=== PATIENT | female | born 2000 | race Caucasian/White ===

== ENCOUNTER 2023-11-19 22:50 | Emergency (ER) | payer OTHER, SELFPAY ==
[2023-11-19 23:10] VITALS: BP 104/76
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
[2023-11-19 23:52] LABS: % Basophils 0.5 % (0-2); % Eosinophils 0.3 % (0-6); % Immature Granulocytes 3.1 % (0-0.5); % Lymphocytes 18.5 % (20.5-51.1); % Neutrophils 72.6 % (42.2-75.2); Absolute Basophils 0.1 10^3/uL (0-0.2); Absolute Immature Granulocytes 0.4 10^3/uL (0-0.05); Absolute Lymphocytes 2.2 10^3/uL (1.2-3.4); Absolute Monocytes 0.6 10^3/uL (0.1-0.6); Absolute Neutrophils 8.5 10^3/uL (1.4-6.5); Hematocrit 43.1 % (37.0-47.0); Hemoglobin 14.9 g/dL (12.0-16.0); Mean Corp Hgb Conc. 34.6 g/dL (33.0-37.0); Mean Corpuscular Volume 86.9 fL (81.0-99.0); Mean Platelet Volume 8.9 fL (7.4-10.4); Nucleated Red Blood Cells % 0 %; Platelet Count 349 10^3/uL (130-400); Red Blood Cell Count 4.96 10^6/uL (4.20-5.40); Red Cell Dist. Width 11.9 % (11.5-14.5); White Blood Cell Count 11.6 10^3/uL (4.8-10.8)
[2023-11-19] MEDS: TORADOL 15 MG IV (23:56)
[2023-11-20 00:04] LABS: HCG, Serum Qualitative Screen Negative
[2023-11-20 00:12] LABS: Blood Urea Nitrogen 5 mg/dl (7-17); Calcium 9.2 mg/dl (8.4-10.2); Carbon Dioxide 26 mmol/L (22-30); Glucose 110 mg/dl (70-99); eGFR > 60.00
[2023-11-20 00:30] LABS: Chloride 104 mmol/L (98-107); Potassium 4.1 mmol/L (3.5-5.1); Sodium 144 mmol/L (135-145)
== END 2023-11-20 01:52 | disposition home or self-care (01) ==
LOC: EMR 22:50
PROVIDERS: EMERGENCY PHYSICIAN Emergency Medicine
DX: S42.001A Fracture of unspecified part of right clavicle, initial encounter for closed fracture (principal); S22.41XA Multiple fractures of ribs, right side, initial encounter for closed fracture; V47.5XXA Car driver injured in collision with fixed or stationary object in traffic accident, initial encounter; F17.290 Nicotine dependence, other tobacco product, uncomplicated
CPT/HCPCS: 99285; 96374; 70450; 71260; 72125; 74177; 80048; 84703; 85025; Q9967